=== PATIENT | male | born 1985 | race Caucasian/White ===

== ENCOUNTER 2016-09-21 10:01 | Emergency (ER) | payer OTHER ==
--- NOTE | 2016-09-21 10:15 | EDM.PDOC ---
<Magali Sheldon - Last Filed: 09/21/16 10:36> ED HPI GENERAL MEDICAL PROBLEM - General Chief Complaint: Respiratory Problem Stated Complaint: ILL,CONGESTION,COUGH Time Seen by Provider: 09/21/16 10:13 - Related Data Allergies Allergy/AdvReac Type Severity Reaction Status Date / Time dust Allergy Other Uncoded 09/21/16 10:21 pollens Allergy Other Uncoded 09/21/16 10:21 Home Meds: Home Meds Fish Oil/Rittman-3 Fatty Acids [Fish Oil] 500 mg PO DAILY 01/07/15 [History] Multivitamin [Multi-Vitamin Daily] 1 each PO DAILY 01/07/15 [History] Course - Vital Signs Last Recorded V/S: Last Vital Signs Temp 36.9 C 09/21/16 10:19 Pulse 89 09/21/16 10:45 Resp 16 09/21/16 10:45 BP 137/86 09/21/16 10:45 Pulse Ox 96 09/21/16 10:45 - Orders/Labs/Meds Orders: Active Orders 24 hr Category Date Time Status CXR [Chest 2V] [CR] Stat Exams 09/21/16 10:12 Taken Departure - Departure Time of Disposition: 10:36 Disposition: Home, Self-Care 01 Condition: good Clinical Impression: Bronchitis - Discharge Information Instructions: Acute Bronchitis, [id number] Referrals: PCP,None [Primary Care Provider] - Forms: ED Department Discharge Additional Instructions: The following information is given to patients seen in the emergency department who are being discharged to home. This information is to outline your options for follow-up care. We provide all patients seen in our emergency department with a follow-up referral. The need for follow-up, as well as the timing and circumstances, are variable depending upon the specifics of your emergency department visit. If you don't have a primary care physician on staff, we will provide you with a referral. We always advise you to contact your personal physician following an emergency department visit to inform them of the circumstance of the visit and for follow-up with them and/or the need for any referrals to a consulting specialist. The emergency department will also refer you to a specialist when appropriate. This referral assures that you have the opportunity for follow-up care with a specialist. All of these measure are taken in an effort to provide you with optimal care, which includes your follow-up. Under all circumstances we always encourage you to contact your private physician who remains a resource for coordinating your care. When calling for follow-up care, please make the office aware that this follow-up is from your recent emergency room visit. If for any reason you are refused follow-up, please contact the [facility] at and asked to speak to the emergency department charge nurse. [facility] [address] [place] [id number] - My Orders Last 24 Hours: My Active Orders 09/21/16 10:12 CXR [Chest 2V] [CR] Stat - Assessment/Plan Last 24 Hours: My Active Orders 09/21/16 10:12 CXR [Chest 2V] [CR] Stat <Albertina Farooq - Last Filed: 09/21/16 10:53> ED HPI GENERAL MEDICAL PROBLEM - General Source of Information: Reports: Patient History Limitations: Reports: No Limitations - History of Present Illness INITIAL COMMENTS - FREE TEXT/NARRATIVE: HISTORY AND PHYSICAL: []31-year-old male presents with cough and congestion History of Present Illness: []Patient returned from [place] yesterday and had finished his medication from the doctor there. He was treated for a pneumonia but feels that he is not completely over this Review of Systems: As per history of present illness and below otherwise all systems reviewed and negative. Past medical history: As per history of present illness and as reviewed below otherwise noncontributory. Surgical history: As per history of present illness and as reviewed below otherwise noncontributory. Social history: No reported history of drug or alcohol abuse. Family history: As per history of present illness and as reviewed below otherwise noncontributory. Physical exam: Alert and oriented speaking in full sentences no shortness of breath. HEENT: Atraumatic, normocehpalic, pupils reactive, negative for conjunctival pallor or scleral icterus, mucous membranes moist, throat clear, neck supple, nontender, trachea midline. Lungs: Clear to auscultation, breath sounds equal bilaterally, chest non tender. Heart: S1S2, regular, negative for clicks, rubs, or JVD. Abdomen: Soft, nondistended, nontender. Negative for masses or hepatossplenmegaly. Negative for costovertebral tenderness. Pelvis: Deferred. Genitourinary: Deferred. Rectal: Deferred Extremities: Atraumatic, negative for cords or calf pain. Neurovascular unremarkable. Neuro: Awake, alert, oriented. Cranial nerves II through XII unremarkable. Cerebellum unremarkable. Motor and sensory unremarkable throughout. Exam nonfocal. Dr. Sheldon kindly saw this patient and discussed his chest x-ray and his resolving pneumonia. Continues to have some bronchitis as this is resolving. Diagnostics: [Chest x-ray] Therapeutics: [] Impression: [Bronchitis] Plan: [Home, rest, push fluids Follow up with your primary care provider next week if not showing further improvement] Definitive disposition and diagnosis as appropriate pending reevaluation and review of above. Onset: Gradual Duration: Day(s): Location: Reports: Chest Severity: Mild Improves with: Reports: None Worsens with: Reports: None chest area Pain Score (Numeric/FACES): 2 Past Medical History - Past Health History Medical/Surgical History: Denies Medical/Surgical History Social & Family History - Tobacco Use Smoking Status *Q: Never Smoker Second Hand Smoke Exposure: No - Recreational Drug Use Recreational Drug Use: No ED ROS GENERAL - Review of Systems Review Of Systems: ROS reveals no pertinent complaints other than HPI. ED EXAM, GENERAL - Physical Exam Exam: See Below (See dictation) Course - Vital Signs Last Recorded V/S: Last Vital Signs Temp 36.9 C 09/21/16 10:19 Pulse 89 09/21/16 10:45 Resp 16 09/21/16 10:45 BP 137/86 09/21/16 10:45 Pulse Ox 96 09/21/16 10:45 - Orders/Labs/Meds Orders: Active Orders 24 hr Category Date Time Status CXR [Chest 2V] [CR] Stat Exams 09/21/16 10:12 Taken Departure - Departure Condition: good - My Orders Last 24 Hours: My Active Orders 09/21/16 10:12 CXR [Chest 2V] [CR] Stat - Assessment/Plan Last 24 Hours: My Active Orders 09/21/16 10:12 CXR [Chest 2V] [CR] Stat
[2016-09-21 10:50] VITALS: BP 137/86
--- NOTE | 2016-09-23 10:47 | CR ---
EXAM DATE: 09/21/16 PATIENT'S AGE: 31 Patient: MARCELLO MENDOZA Facility: [place], [place] Site . Site : 1985 Study: XRay Chest [id number]/10/2017 10:23:29 AM Ordering Physician: Doctor Pemberton Final Report: HISTORY: Cough and shortness of breath. History of pneumonia. Technique: Chest PA and lateral. Comparison: 01/07/2015. Findings: The heart size and pulmonary veins are normal. There is a small hiatal hernia. No acute infiltrate is present and there is no effusion. Impression: No radiographic evidence of acute cardiopulmonary disease. Dictated by Mike Dodd MD @ Sep 21 2016 10:28AM (Electronic Signature) Report Signed by Proxy. BARTOLO
== END 2016-09-21 10:45 | disposition home or self-care (01) ==
LOC: MW.ED 10:01
DX: J40 Bronchitis, not specified as acute or chronic (principal); Z79.899 Other long term (current) drug therapy; Z91.018 Allergy to other foods; Z91.048 Other nonmedicinal substance allergy status
CPT/HCPCS: 71020; 71020-26; 99282; 99283

== ENCOUNTER 2023-02-27 18:53 | Emergency (ER) | payer OTHER ==
[2023-02-27 22:20] VITALS: BP 128/82; PULSE 78
== END 2023-02-27 22:19 | disposition home or self-care (01) ==
LOC: MW.ED 18:53
DX: M71.22 Synovial cyst of popliteal space [Baker], left knee (principal); I10 Essential (primary) hypertension; E78.00 Pure hypercholesterolemia, unspecified; E11.9 Type 2 diabetes mellitus without complications; Z79.84 Long term (current) use of oral hypoglycemic drugs; Z91.048 Other nonmedicinal substance allergy status; Z79.899 Other long term (current) drug therapy
CPT/HCPCS: 93971-26-LT; 93971-LT; 99282; 99283

== ENCOUNTER 2023-09-30 16:57 | Emergency (ER) | payer OTHER ==
[2023-09-30 17:24] VITALS: BP 129/71; PULSE 76
== END 2023-09-30 17:35 | disposition left against medical advice (07) ==
LOC: MW.ED 16:57
DX: Z48.02 Encounter for removal of sutures (principal); Z98.84 Bariatric surgery status
CPT/HCPCS: 99281

== ENCOUNTER 2023-10-24 11:23 | Emergency (ER) | payer OTHER ==
[2023-10-24 12:18] LABS: BASOPHILS ABSOLUTE AUTO 0.07 K/uL (0.00-0.20); EOSINOPHILS ABSOLUTE AUTO 0.38 K/uL (0.00-0.45); EOSINOPHILS PERCENT AUTO 5.4 % (0.0-6.0); HEMATOCRIT 43.5 % (42.0-52.0); HEMOGLOBIN 14.7 g/dL (14.0-18.0); IMMATURE GRAN ABSOLUTE AUTO 0.01 K/uL (0.00-0.05); IMMATURE GRAN PERCENT AUTO 0.1 % (0.0-0.4); LYMPHOCYTES ABSOLUTE AUTO 1.18 K/uL (1.00-4.80); LYMPHOCYTES PERCENT AUTO 16.7 % (24.0-44.0); MEAN CORPUSCULAR HEMOGLOBIN 27.5 pg (28.0-32.0); MEAN CORPUSCULAR HGB CONC 33.8 g/dL (32.0-36.0); MEAN CORPUSCULAR VOLUME 81.3 fL (83.0-99.0); MEAN PLATELET VOLUME 10.4 fL (9.4-12.4); MONOCYTES ABSOLUTE AUTO 0.83 K/uL (0.00-0.80); MONOCYTES PERCENT AUTO 11.8 % (0.0-8.0); NEUTROPHILS ABSOLUTE AUTO 4.59 K/uL (1.80-7.70); PLATELET COUNT,PLT 242 K/uL (150-400); RED BLOOD CELL COUNT 5.35 M/uL (4.52-5.90); WHITE BLOOD CELL COUNT,WBC 7.06 K/uL (3.9-11.3)
[2023-10-24] MEDS: Sodium Chloride 0.9% 1,000 ML IV ONE (12:21)
[2023-10-24] MEDS: Sodium Chloride 0.9% 10 ML Syringe FLUSH PRN (12:21)
[2023-10-24] MEDS: Sodium Chloride 0.9% 2.5 ML Syringe FLUSH PRN (12:21)
[2023-10-24 12:38] LABS: A/G RATIO 1.2 (0.9-1.6); ALBUMIN 3.5 g/dL (3.4-5.0); BILIRUBIN TOTAL 0.5 mg/dL (0.2-1.0); CALCIUM 8.5 mg/dL (8.5-10.1); CARBON DIOXIDE,CO2 23.9 mmol/L (21.0-32.0); CREATININE 0.8 mg/dL (0.8-1.3); EST CRCL DRUG DOSING (CG) 118.75 mL/min; POTASSIUM,K 3.4 mmol/L (3.5-5.1); PROTEIN TOTAL,TP 6.3 g/dL (6.4-8.2)
[2023-10-24] MEDS: Sodium Chloride 0.9% 1,000 ML IV STA (13:04)
[2023-10-24 13:48] VITALS: BP 144/92; PULSE 77
== END 2023-10-24 13:49 | disposition home or self-care (01) ==
LOC: MW.ED 11:23
DX: E86.0 Dehydration (principal); I10 Essential (primary) hypertension; E11.9 Type 2 diabetes mellitus without complications; Z79.899 Other long term (current) drug therapy; Z91.048 Other nonmedicinal substance allergy status
CPT/HCPCS: 36415; 80053; 83690; 85025; 96360; 96361; 99284; J3490; J7030

== ENCOUNTER 2024-05-21 01:01 | Emergency (ER) | payer OTHER ==
[2024-05-21] MEDS: Acetaminophen 500 MG Tab PO ONE (01:16)
[2024-05-21] MEDS: Ibuprofen 600 MG Tab PO ONE (01:16)
[2024-05-21] MEDS: Ondansetron 4 MG Tab.DIS PO ONE (01:17)
[2024-05-21] MEDS: Sodium Chloride 0.9% 1,000 ML IV ONE (01:44)
[2024-05-21 02:06] LABS: BASOPHILS ABSOLUTE AUTO 0.09 K/uL (0.00-0.20); EOSINOPHILS ABSOLUTE AUTO 0.29 K/uL (0.00-0.45); EOSINOPHILS PERCENT AUTO 3.3 % (0.0-6.0); HEMATOCRIT 46.4 % (42.0-52.0); HEMOGLOBIN 15.6 g/dL (14.0-18.0); IMMATURE GRAN ABSOLUTE AUTO 0.02 K/uL (0.00-0.05); IMMATURE GRAN PERCENT AUTO 0.2 % (0.0-0.4); LYMPHOCYTES PERCENT AUTO 25.9 % (24.0-44.0); MEAN CORPUSCULAR HEMOGLOBIN 28.2 pg (28.0-32.0); MEAN CORPUSCULAR HGB CONC 33.6 g/dL (32.0-36.0); MEAN CORPUSCULAR VOLUME 83.9 fL (83.0-99.0); MEAN PLATELET VOLUME 11.1 fL (9.4-12.4); MONOCYTES ABSOLUTE AUTO 0.64 K/uL (0.00-0.80); MONOCYTES PERCENT AUTO 7.2 % (0.0-8.0); NEUTROPHILS ABSOLUTE AUTO 5.54 K/uL (1.80-7.70); NEUTROPHILS PERCENT AUTO 62.4 % (41.0-71.0); PLATELET COUNT,PLT 244 K/uL (150-400); RED BLOOD CELL COUNT 5.53 M/uL (4.52-5.90); WHITE BLOOD CELL COUNT,WBC 8.88 K/uL (3.9-11.3)
[2024-05-21 02:30] LABS: A/G RATIO 1.2 (0.9-1.6); ALBUMIN 3.3 g/dL (3.4-5.0); BILIRUBIN TOTAL 0.5 mg/dL (0.2-1.0); CALCIUM 8.1 mg/dL (8.5-10.1); CARBON DIOXIDE,CO2 24.4 mmol/L (21.0-32.0); EST CRCL DRUG DOSING (CG) 94.05 mL/min; PROTEIN TOTAL,TP 6.1 g/dL (6.4-8.2)
[2024-05-21 03:09] VITALS: BP 145/98
[2024-05-21 03:33] VITALS: PULSE 88
== END 2024-05-21 03:33 | disposition home or self-care (01) ==
LOC: MW.ED 01:01
DX: A08.4 Viral intestinal infection, unspecified (principal); R68.83 Chills (without fever); R52 Pain, unspecified; I10 Essential (primary) hypertension; E11.9 Type 2 diabetes mellitus without complications; J45.909 Unspecified asthma, uncomplicated; Z79.899 Other long term (current) drug therapy; Z91.018 Allergy to other foods
CPT/HCPCS: 36415; 80053; 83690; 85025; 87428; 96360; 99284; A9270; J7030

== ENCOUNTER 2024-12-29 16:32 | Emergency (ER) | payer OTHER ==
[2024-12-29 17:44] LABS: APPEARANCE,URINE CLEAR; GLUCOSE,URINE NEGATIVE (NEGATIVE); OCCULT BLOOD,URINE NEGATIVE (NEGATIVE)
[2024-12-29] MEDS ORDERED: Naloxone 0.4 MG/ML SDV IVPUSH PRN (18:45)
[2024-12-29 18:55] LABS: BASOPHILS ABSOLUTE AUTO 0.08 K/uL (0.00-0.20); BASOPHILS PERCENT AUTO 1.2 % (0.0-1.0); EOSINOPHILS ABSOLUTE AUTO 0.16 K/uL (0.00-0.45); EOSINOPHILS PERCENT AUTO 2.3 % (0.0-6.0); IMMATURE GRAN ABSOLUTE AUTO 0.02 K/uL (0.00-0.05); IMMATURE GRAN PERCENT AUTO 0.3 % (0.0-0.4); LYMPHOCYTES ABSOLUTE AUTO 1.43 K/uL (1.00-4.80); LYMPHOCYTES PERCENT AUTO 20.8 % (24.0-44.0); MEAN PLATELET VOLUME 10.3 fL (9.4-12.4); MONOCYTES ABSOLUTE AUTO 0.63 K/uL (0.00-0.80); MONOCYTES PERCENT AUTO 9.2 % (0.0-8.0); NEUTROPHILS ABSOLUTE AUTO 4.56 K/uL (1.80-7.70); NEUTROPHILS PERCENT AUTO 66.2 % (41.0-71.0); NRBC ABSOLUTE 0.00 K/uL (0.00-0.02); NRBC PERCENT 0.0 /100WBC (0.0-0.2); PLATELET COUNT,PLT 265 K/uL (150-400); RED BLOOD CELL COUNT 5.81 M/uL (4.52-5.90); WHITE BLOOD CELL COUNT,WBC 6.88 K/uL (3.9-11.3)
[2024-12-29] MEDS: Ondansetron 4 MG/2 ML SDV IVPUSH ONE (19:04)
[2024-12-29] MEDS: Sodium Chloride 0.9% 2.5 ML Syringe FLUSH PRN (19:05)
[2024-12-29] MEDS: Sodium Chloride 0.9% 10 ML Syringe FLUSH PRN (19:05)
[2024-12-29 19:17] LABS: A/G RATIO 1.3 (0.9-1.6); ALANINE AMINOTRANSFERASE,ALT 27.0 IU/L (14-63); ASPARTATE AMNIOTRANSFERASE,AST 22.0 IU/L (15-37); BILIRUBIN TOTAL 0.5 mg/dL (0.2-1.0); BLOOD UREA NITROGEN,BUN 14.0 mg/dL (7.0-18.0); CARBON DIOXIDE,CO2 27.2 mmol/L (21.0-32.0); CHLORIDE,CL 106.0 mmol/L (98-107); CREATININE 0.9 mg/dL (0.8-1.3); EST CRCL DRUG DOSING (CG) 104.5 mL/min; GLUCOSE RANDOM 80.0 mg/dL (74-106); POTASSIUM,K 4.2 mmol/L (3.5-5.1); PROTEIN TOTAL,TP 6.5 g/dL (6.4-8.2); SODIUM,NA 139.0 mmol/L (136-148)
[2024-12-29 19:18] LABS: ESTIMATED GFR 110.0 mL/min (>60)
[2024-12-29] MEDS: Iopamidol 755 MG/ML 500 ML Multipack Bottle IVPUSH STA (20:46)
[2024-12-29 21:31] VITALS: BP 138/84; PULSE 69
== END 2024-12-29 21:56 | disposition home or self-care (01) ==
LOC: MW.ED 16:32
DX: N13.2 Hydronephrosis with renal and ureteral calculous obstruction (principal); E78.00 Pure hypercholesterolemia, unspecified; I10 Essential (primary) hypertension; J45.909 Unspecified asthma, uncomplicated; E11.9 Type 2 diabetes mellitus without complications; Z79.899 Other long term (current) drug therapy; Z91.018 Allergy to other foods
CPT/HCPCS: 36415; 74177; 80053; 81003; 83690; 85025; 87086; 96361; 96374; 96375; 99284; A9270; J2270; J2405; J7030; Q9967

== ENCOUNTER 2024-12-30 17:07 | Emergency (ER) | payer OTHER ==
[2024-12-30] MEDS: Ketorolac 30 MG/ML SDV IM ONE (17:33)
[2024-12-30 17:39] VITALS: BP 137/94; PULSE 80
== END 2024-12-30 17:46 | disposition home or self-care (01) ==
LOC: MW.ED 17:07
DX: N13.2 Hydronephrosis with renal and ureteral calculous obstruction (principal); I10 Essential (primary) hypertension; E11.9 Type 2 diabetes mellitus without complications; Z91.018 Allergy to other foods; Z79.899 Other long term (current) drug therapy; Z87.448 Personal history of other diseases of urinary system
CPT/HCPCS: 96372; 99283; A9270; J1885